=== PATIENT | female | born 1995 | race Caucasian/White ===

== ENCOUNTER 2022-05-14 05:50 | Day surgery (SDC) | payer BC ==
[2022-05-13 11:26] VITALS: BMI 34.9
--- NOTE | 2022-05-13 13:05 | P.HPOB ---
History of Present Illness H&P Date: 05/13/22 Chief Complaint: Missed This patient is a pleasant 26 yr estimated gestational age 9 weeks by dates, estimated 6 weeks by ultrasound who presents for suction D&C secondary to a missed . Patient's history is such that she presented for her initial OB visit and ultrasound showed an empty 6 weeks sac. Repeat ultrasound 1 week later confirmed a non-viable . I discussed options with the patient including expectant management vs. D&C and she would like to proceed with a D&C for treatment. Review of Systems Genitourinary: Reports Menstruation: Reports amenorrhea Past Medical History Past Medical History: No Reported History History of Any Multi-Drug Resistant Organisms: None Reported Additional Past Surgical History / Comment(s): [place] teeth Past Anesthesia/Blood Transfusion Reactions: Motion Sickness Additional Past Anesthesia/Blood Transfusion Reaction / Comment(s): States is very nervous for surgery. Past Psychological History: No Psychological Hx Reported Smoking Status: Never smoker Past Alcohol Use History: None Reported Past Drug Use History: None Reported - Past Family History Mother Additional Family Medical History / Comment(s): Clotting disorder on her mother's side. Medications and Allergies Home Medications Medication Instructions Recorded Confirmed Type Vit No.179/Iron/Folic 1 each PO DAILY 05/13/22 05/13/22 History [ Tablet] Allergies Allergy/AdvReac Type Severity Reaction Status Date / Time No Known Allergies Allergy Verified 05/13/22 11:10 Exam Intake and Output 05/12/22 05/13/22 05/13/22 22:59 06:59 14:59 Other: Weight 104.326 kg - OBG Physical Exam Abdomen: bowel sounds normal, no diffuse tenderness, no bruit present, no guarding noted, no hepatomegaly, no splenomegaly, no mass Vulva: both: normal Vagina: normal moisture, no discharge Cervix: no lesion, no discharge Uterus: normal size, normal contour Results Serial ultrasounds show a 6 weeks gestational sac with pole. HCG ~13,000. Blood type O positive. Assessment and Plan Assessment: This is a pleasant 26 yr female estimated gestational age 6 weeks with non- viable (missed ). Plan is suction D&C. I discussed this surgery and risks: infection, bleeding, possible uterine perforation. All of her questions were answered and a written consent was obtained. (1) Missed Status: Acute Code(s): O02.1 - MISSED SNOMED Code(s): 89891995
[~2022-05-14 05:50] MED LIST: LACTATED RINGERS 1,000 ML IV SCH; Pre Op ABX Message 1 EACH MISC MISCELLANE ONE
[2022-05-14] MEDS ORDERED: ONDANSETRON 4 MG/2 ML VIAL IVP ONE (06:43)
[2022-05-14] MEDS ORDERED: DEXAMETHASONE SOD PHOSPHATE 4 MG/ML 1 ML VIAL IVP ONE (06:44)
[2022-05-14] MEDS ORDERED: MIDAZOLAM 2 MG/2 ML VIAL ONE (06:45)
[2022-05-14] MEDS ORDERED: KETOROLAC 15 MG/ML 1 ML VIAL ONE (06:45)
[2022-05-14] MEDS ORDERED: PROPOFOL 10 MG/ML 20 ML VIAL IV ONE (06:45)
[2022-05-14] MEDS ORDERED: LIDOCAINE 2% INJ 20 MG/ML (2 ML VIAL) ONE (06:45)
[2022-05-14] MEDS ORDERED: fentaNYL (PF) 50 MCG/ML 2 ML AMP ONE (06:45)
--- NOTE | 2022-05-14 07:18 | P.OP ---
Date of Procedure: 05/14/22 Preoperative Diagnosis: Missed , 6 weeks Postoperative Diagnosis: Same Procedure(s) Performed: Suction dilation and curettage Anesthesia: other (LMA) Surgeon: Elliot Aguayo Estimated Blood Loss (ml): 50 Urine output (ml): 75 Pathology: other (Products of conception) Condition: stable Disposition: PACU Indications for Procedure: Please see dictated H&P for intimate details of this patient's admission. Brief summary this is a pleasant 26-year-old 1 para 0 female estimated gestational age 6 weeks with serial ultrasounds showing a missed . Patient now presents for suction D&C for treatment. Patient understands this surgery and risks including risks of infection, bleeding, possible uterine perforation. All the patient's questions are answered and a written consent is obtained. Operative Findings: Uterine contents were consistent with products of conception Description of Procedure: This patient is taken to the operating room where she is laid in the supine position. She subsequently undergoes general anesthesia without incident. With an adequate level of anesthesia she's placed in dorsal lithotomy position. She has a vaginal perineal prep and drape. Examination under anesthesia shows a mid position uterus slightly enlarged. Weighted speculum was placed in the posterior vagina. Bladder is then drained for 75 mL of clear urine. I placed an Allis clamp on the anterior lip of the cervix. The cervix is then gently dilated to allow a 8 curved suction curette easily uterine cavity. Suction curet is passed multiple times for a generous amount of tissue. This completed the suction curet is removed and a gentle but thorough 4 quadrant curettage is done and confirms no further tissue. Final pass of the suction curet is done. Bleeding subsides and the procedure is ended. Weighted speculum and Allis clamp removed. All counts are correct 3. There are no complications. Patient is awakened from anesthesia and taken recovery room satisfactory condition.
[2022-05-14 07:31] VITALS: TEMP 97.4
[2022-05-14 07:35] VITALS: RESP 16
[2022-05-14 08:17] VITALS: BP 104/66; PULSE 68
== END 2022-05-14 08:51 | disposition home or self-care (01) ==
LOC: OR 05:50
PROVIDERS: ATTEND Obstetrics & Gynecology
DX: O02.1 Missed abortion (principal); K01.1 Impacted teeth; Z83.2 Family history of diseases of the blood and blood-forming organs and certain disorders involving the immune mechanism; T75.3XXD Motion sickness, subsequent encounter; Z86.69 Personal history of other diseases of the nervous system and sense organs
CPT/HCPCS: 59820; 86900; 86901; 88305; 86850; J2250; J1100; J2405; J3010; J1885; J2704; J2001

== ENCOUNTER 2023-05-06 05:52 | Inpatient (IN) | payer BC ==
--- NOTE | 2023-05-05 07:04 | P.HPOB ---
History of Present Illness H&P Date: 05/05/23 Chief Complaint: Requested induction of labor This patient is a pleasant 27-year-old 2 para 0 female estimated date of confinement 05/06/2023 estimated gestational age 40-0/7 weeks who presents to labor and delivery for requested induction of labor. Patient's care has been uncomplicated. Patient's uncomfortable has a favorable cervix at term requesting induction. Review of Systems Genitourinary: Reports Menstruation: Reports amenorrhea Past Medical History Past Medical History: No Reported History History of Any Multi-Drug Resistant Organisms: None Reported Additional Past Surgical History / Comment(s): [place] teeth; suction D&C Past Anesthesia/Blood Transfusion Reactions: Motion Sickness Past Psychological History: No Psychological Hx Reported Smoking Status: Never smoker Past Alcohol Use History: None Reported Past Drug Use History: None Reported - Past Family History Mother Additional Family Medical History / Comment(s): Clotting disorder on her mother's side. Medications and Allergies Home Medications Medication Instructions Recorded Confirmed Type Vit No.179/Iron/Folic 1 each PO DAILY 05/13/22 05/13/22 History [ Tablet] Allergies Allergy/AdvReac Type Severity Reaction Status Date / Time No Known Allergies Allergy Verified 05/13/22 11:10 Exam - OBG Physical Exam Abdomen: bowel sounds normal, no diffuse tenderness, no bruit present, no guarding noted, no hepatomegaly, no splenomegaly, no mass Vulva: both: normal Vagina: normal moisture, no discharge Cervix: no lesion (Cervix is 2 cm and soft.), no discharge Uterus: enlarged (Fundal height 38 cm) Results labs show she is O positive, rubella immune, RPR is nonreactive, HIV is negative, hepatitis B and C her nonreactive, Glucola was normal at 119, group B strep was negative, most recent ultrasound showed baby to be 6 lbs. 14 oz. Assessment and Plan Assessment: This is a pleasant 27-year-old 2 para 0 female 40-0/7 weeks gestation admitted to labor and delivery for requested induction of labor. Plan is induction of labor and anticipate vaginal delivery. (1) 40 weeks gestation of Status: Acute Code(s): Z3A.40 - 40 WEEKS GESTATION OF SNOMED Code(s): 12227929 (2) Elective induction of labor planned Status: Acute Code(s): CMN1611 - SNOMED Code(s): 169474480
[2023-05-06] MEDS ORDERED: OXYTOCIN 30 UNITS/500 ML NS 30 UNIT in SALINE 1 500ML.BAG IV SCH ×2 (06:08→21:15)
[2023-05-06] MEDS ORDERED: CARBOPROST TROMETHAMINE 250 MCG/ML 1 ML AMP IM PRN ×2 (06:08→19:44)
[2023-05-06] MEDS ORDERED: OXYTOCIN 10 UNIT/ML 1 ML VIAL IM PRN ×2 (06:08→19:44)
[2023-05-06] MEDS ORDERED: TRANEXAMIC 1,000 MG/100ML-NACL 1,000 MG in EMPTY BAG 1 BAG IV PRN ×2 (06:08→19:44)
[2023-05-06] MEDS ORDERED: TERBUTALINE 1 MG/ML VIAL SQ PRN (06:08)
[2023-05-06] MEDS ORDERED: miSOPROStoL 200 MCG TAB PO PRN ×2 (06:08→19:44)
[2023-05-06] MEDS ORDERED: LIDOCAINE 0.5% (PF) 5 MG/ML (50 ML SDV) SQ PRN (06:08)
[2023-05-06] MEDS ORDERED: METHYLERGONOVINE 0.2 MG/ML 1 ML AMP IM PRN ×2 (06:08→19:44)
[2023-05-06] MEDS: LACTATED RINGERS 1,000 ML IV SCH ×3 (06:10→22:00)
[2023-05-06 06:29] LABS: Basophils % (A) 0 %; Eosinophils # (A) 0.1 k/uL (0-0.7); Eosinophils % (A) 1 %; HCT 37.8 % (34.0-46.0); Lymphocytes # (A) 2.2 k/uL (1.0-4.8); Lymphocytes % (A) 23 %; MCH 32.2 pg (25.0-35.0); MCHC 34.5 g/dL (31.0-37.0); MCV 93.4 fL (80.0-100.0); Monocytes # (A) 0.5 k/uL (0-1.0); Monocytes % (A) 6 %; Neutrophils # (A) 6.7 k/uL (1.3-7.7); Neutrophils % (A) 68 %; Platelet Count 165 k/uL (150-450); RBC 4.05 m/uL (3.80-5.40); RDW 12.9 % (11.5-15.5); WBC 9.8 k/uL (3.8-10.6)
[2023-05-06] MEDS ORDERED: fentaNYL (PF) 50 MCG/ML 5 ML AMP ONE (10:56)
[2023-05-06] MEDS ORDERED: ROPIVACAINE 5 MG/ML 30 ML VIAL ONE (10:56)
[2023-05-06] MEDS ORDERED: SODIUM CHLORIDE 0.9% 250 ML BAG ONE (10:56)
--- NOTE | 2023-05-06 18:57 | P.PN ---
Progress Note - Text Progress Note Date: 05/06/23 Patient's cervix continues to be 6 cm with descent of the head -2 station. Patient's been in early active labor for greater than 4 hours without any progression. heart tones are reassuring at this time. I did discuss the patient the concern of cephalopelvic dystocia and did offer her at this time. She at this point wants to continue waiting and have a repeat examination. Plan at this time is to recheck and reevaluate as labor progresses.
[2023-05-06] MEDS ORDERED: CITRIC ACID-SODIUM CITRATE 15 ML CUP PO ONE (19:44)
--- NOTE | 2023-05-06 19:45 | P.PN ---
Progress Note - Text Progress Note Date: 05/06/23 Patient's repeat exam shows cervix is still 6 cm head -2 station. She is now requesting section for delivery. Did discuss the benefits risks of the surgery including risks. We will proceed with section this time.
[2023-05-06] MEDS ORDERED: OXYTOCIN 30 UNITS/500 ML NS BAG IV ONE (20:10)
[2023-05-06] MEDS ORDERED: MORPHINE SULFATE (PF) 0.3 MG/0.3 ML SYR ONE (20:10)
[2023-05-06] MEDS ORDERED: KETOROLAC 15 MG/ML 1 ML VIAL ONE (20:10)
[2023-05-06] MEDS ORDERED: ONDANSETRON 4 MG/2 ML VIAL ONE (20:10)
[2023-05-06] MEDS ORDERED: NALBUPHINE 10 MG/ML (10 ML MDV) IV PRN (20:35)
[2023-05-06] MEDS ORDERED: METOCLOPRAMIDE 5 MG/ML 2 ML VIAL IVP PRN ×2 (20:35→21:04)
[2023-05-06] MEDS ORDERED: ONDANSETRON 4 MG/2 ML VIAL IVP PRN (20:35)
[2023-05-06] MEDS ORDERED: diphenhydrAMINE 50 MG/ML 1 ML VIAL IVP PRN ×2 (20:35→21:04)
[2023-05-06] MEDS ORDERED: KETOROLAC 15 MG/ML 1 ML VIAL IVP PRN (20:35)
[2023-05-06] MEDS ORDERED: NALOXONE 0.4 MG/ML 1 ML VIAL IV PRN (20:35)
[2023-05-06] MEDS ORDERED: MORPHINE SULFATE 2 MG/ML SYRINGE IVP PRN (20:35)
[2023-05-06] MEDS ORDERED: SIMETHICONE 80 MG CHEWABLE PO PRN (21:04)
[2023-05-06] MEDS ORDERED: ZOLPIDEM 5 MG TAB PO PRN (21:04)
[2023-05-06] MEDS ORDERED: LANOLIN CREAM 5 GM TUBE TOPICAL PRN (21:04)
[2023-05-06] MEDS ORDERED: diphenhydrAMINE 25 MG CAP PO PRN (21:04)
--- NOTE | 2023-05-06 21:18 | P.OP ---
Date of Procedure: 05/06/23 Preoperative Diagnosis: #1: 40-0/7 week intrauterine . #2: Failure to progress in labor Postoperative Diagnosis: #1: Same. #2: Nuchal cord 1 Anesthesia: spinal Surgeon: Elliot Aguayo Laboratory Operations Coordinator #1: Cholo Scott Estimated Blood Loss (ml): 600 Pathology: none sent Condition: stable Disposition: floor Indications for Procedure: Please see dictated H&P for intimate details of this patient's admission. Brief summary this is a pleasant 27-year-old 2 para 0 female 40-0/7 weeks gestation admitted to labor and delivery for requested induction of labor. Patient is admitted she's to 3 cm dilated has artificial rupture membranes for clear fluid. Labor is induced with Pitocin per protocol. Patient does get an epidural for pain control. Labor progresses to about 6 cm earlier in the day despite adequate labor does not progress beyond this and there is no descent of the head beyond -2 station. At this time I discussed with the patient and her family options for delivery including section and wished to proceed. Patient understands this surgery and risks and risks of infection, bleeding, possible injury bowel, bladder, vessels, and other organs. All the patient's questions are answered and a written consent is obtained. Operative Findings: This is a vigorous viable female infant Apgars 9 and 9 delivery time is 2027 hrs. There is nuchal cord 1. Description of Procedure: This patient has a Rain catheter placed to straight drain. Patient subsequently taken to the operating room where the epidural catheter is removed and spinal anesthetic is administered without incident. With an adequate level of anesthesia she has abdominal prep and drape. After the appropriate timeout, scalpels taken Pfannenstiel skin incision is made. A second scalpel is taken down the fascia the fascia scored with a knife. Fascial incision extended bilaterally using the Carver scissors. Fascia is then dissected off the rectus muscles sharply. Rectus muscles are the peritoneum identified and entered sharply. Peritoneal incision extended superior and inferior without difficulty. Bladder blade is then placed. Bladder peritoneum was then taken sharply off the lower uterine segment. Scalpels then taken low transverse uterine incision is made. Using a hemostat I enter the uterine cavity bluntly and there is loss of clear fluid. Uterine incision extended bluntly. 's head is guided through the incision. Also nares are bulb suctioned. The is thought to be occiput transverse presentation. There is a nuchal cord 1 which is reduced. More fundal pressure a deliver the rest this infant's body. This is a vigorous viable female Apgars are 9 and 9 delivery time is 2027 hrs. After delivery of the infant the umbilical cord is doubly clamped and cut infant is handed off to the nurses in attendance. The placenta is then manually extracted intact. Uterus is then externalized and uterine incision demarcated with Cruz clamps. Uterus is then closed using 0 Vicryl running locked fashion 2 layers. Additional [id number] stitches placed on the left side. Excellent hemostasis is noted. The bladder peritoneum was then identified and closed using a 3-0 Vicryl running fashion. Excess fluid is removed from the abdomen and pelvis. The uterus, tubes, ovaries appear normal for term gestation. Uterus placed back into the abdomen. Parietal peritoneum was then closed using 0 Vicryl running fashion. Rectus muscles reapproximated in 0 Vicryl interrupted fashion. Fascial incision closed using 0 PDS. Fascial incision is intact and hemostatic. Subcutaneous tissues and closed using a 3-0 Vicryl. Skin is and closed using abel. All counts are correct 3. There are no complications. Infant and mother taken the birthing suite in sati sfactory condition.
[2023-05-07] MEDS: ACETAMINOPHEN TAB 500 MG TAB PO SCH ×5 (00:15→23:55)
[2023-05-07] MEDS: KETOROLAC 15 MG/ML 1 ML VIAL IVP SCH ×4 (03:15→21:28)
[2023-05-07] MEDS: IBUPROFEN 600 MG TAB PO SCH ×3 (03:15→21:28)
[2023-05-07] MEDS: LACTATED RINGERS 1,000 ML IV SCH ×2 (03:19→19:21)
--- NOTE | 2023-05-07 06:49 | P.PNOBGPC ---
Subjective - Subjective Patient reports: Reports appetite normal, Reports voiding normally, Reports pain well controlled, Reports ambulating normally : doing well Objective - Vital Signs Latest vital signs: Vital Signs Temp Pulse Resp BP Pulse Ox 05/07/23 05:00 97 05/07/23 04:00 99.0 F 75 15 101/62 97 05/07/23 01:35 96 05/06/23 23:30 97.0 F L 87 16 113/55 96 05/06/23 23:00 74 17 111/59 96 05/06/23 22:30 69 17 109/55 97 05/06/23 22:15 78 16 116/55 95 05/06/23 22:00 80 16 122/60 96 05/06/23 21:45 79 16 119/57 96 05/06/23 21:35 97 05/06/23 21:30 97.1 F L 83 17 106/55 96 Intake and Output 05/06/23 05/06/23 05/07/23 14:59 22:59 06:59 Intake Total 30.333 Output Total 500 455 440 Balance -500 -424.667 -440 Intake: Intake, IV Titration 30.333 Amount Oxytocin 30 Units/500 ml 30.333 Ns 30 unit In Saline 1 500ml.bag @ Per Protocol IV .Q0M [facility] Rx#:[id number] Output: Urine 500 200 Output, Quantitative 455 240 Blood Loss Other: Voiding Method Indwelling Catheter Indwelling Catheter # Voids 1 - Exam Lungs: bilateral: normal Chest: Normal S1, Normal S2 Extremities: Present: normal Abdomen: Present: normal appearance, soft. Absent: distention, tenderness Incision: Present: normal, dry, intact Uterus: Present: normal, firm Assessment and Plan Assessment: Postoperative day #1. Patient is resting without complaints. Vital signs are stable and she is afebrile. Uterus is firm nontender and her incision is intact and dry. CBC is pending at time of this dictation. My impression this is a normal postoperative course. Plan is to check CBC, allow the patient to shower, discontinue her catheter, encourage ambulation. (1) 40 weeks gestation of Current Visit: No Status: Acute Code(s): Z3A.40 - 40 WEEKS GESTATION OF SNOMED Code(s): 70629885 (2) Elective induction of labor planned Current Visit: No Status: Acute Code(s): PUK4871 - SNOMED Code(s): 157220762
--- NOTE | 2023-05-07 06:52 | P.PN ---
Progress Note - Text Progress Note Date: 05/07/23 Postop day 1 from under spinal anesthesia with intrathecal morphine given for postop pain management. Patient is doing well. Pain is well controlled. On visual analog scale 1/10 Mild itching present No nausea or vomiting reported. No Headache or weakness and numbness in the legs. No complications from spinal anesthesia.
[2023-05-07 08:05] LABS: Basophils % (A) 0 %; Eosinophils % (A) 0 %; HGB 10.7 gm/dL (11.4-16.0); Lymphocytes # (A) 1.6 k/uL (1.0-4.8); Lymphocytes % (A) 14 %; MCHC 33.5 g/dL (31.0-37.0); MCV 95.7 fL (80.0-100.0); Mean Platelet Volume 8.8; Monocytes # (A) 0.9 k/uL (0-1.0); Monocytes % (A) 7 %; Neutrophils # (A) 8.9 k/uL (1.3-7.7); Neutrophils % (A) 76 %; Platelet Count 148 k/uL (150-450); RBC 3.35 m/uL (3.80-5.40); WBC 11.8 k/uL (3.8-10.6)
[2023-05-07] MEDS: SENNOSIDES-DOCUSATE SODIUM 1 EACH TAB PO SCH ×2 (12:37→19:58)
[2023-05-08] MEDS: IBUPROFEN 600 MG TAB PO SCH ×2 (03:55→10:46)
[2023-05-08] MEDS: ACETAMINOPHEN TAB 500 MG TAB PO SCH ×2 (06:20→14:42)
[2023-05-08] MEDS: SENNOSIDES-DOCUSATE SODIUM 1 EACH TAB PO SCH (08:16)
--- NOTE | 2023-05-08 11:43 | P.DS ---
Providers Date of admission: 05/06/23 05:52 Expected date of discharge: 05/08/23 Attending physician: Elliot Aguayo Primary care physician: Stated None Hospital Course: This is a 27-year-old female 2 para 0 at 40-0/7 weeks who presented for induction of labor and then underwent a primary low transverse section on 05/06/2023 due to failure to progress. She delivered a viable female infant with scores of 9 at 1 minute and 9 at 5 minutes and infant weight of 8 lbs. 6 oz. Her postoperative and courses have been uncomplicated. Lochia is decreasing. Her pain is fairly well controlled as long as she does not move too much. She is urinating and passing flatus but no bowel movement yet. She is breast and bottlefeeding. Vital signs are stable. Abdomen is soft with positive bowel sounds 4. Incision is clean dry and intact with abel in place. Extremities show negative Homans. Impression is status post primary low transverse section postoperative day #2. Plan is to discharge home later today. Routine postoperative and instructions are given. She is advised follow-up with Dr. Aguayo in approximately 1 week for a postoperative check and in [address] Aguayo has already sent in prescriptions for her for ibuprofen and oxycodone. She is advised to call the office if she has any further questions or concerns prior to her appointment time. [place] will be removed and Steri-Strips placed prior to discharge. Procedures: Oxytocin induction of labor Primary low transverse section for delivery of a viable female on 05/06/2023 Patient Condition at Discharge: Stable Plan - Discharge Summary New Discharge Prescriptions: New Ibuprofen [Motrin] 600 mg PO Q6H #40 tab oxyCODONE HCL [OxyIR] 5 mg PO Q4HR PRN #18 tab PRN Reason: Pain Scale 4 - 6 No Action Vit No.179/Iron/Folic [ Tablet] 1 each PO DAILY Aspirin 81 mg PO DAILY Discharge Medication List Vit No.179/Iron/Folic [ Tablet] 1 each PO DAILY 05/13/22 [History] Aspirin 81 mg PO DAILY 05/06/23 [History] Ibuprofen [Motrin] 600 mg PO Q6H #40 tab 05/07/23 [Rx] oxyCODONE HCL [OxyIR] 5 mg PO Q4HR PRN #18 tab 05/07/23 [Rx] Follow up Appointment(s)/Referral(s): Elliot Aguayo MD [STAFF PHYSICIAN] - 06/16/23 11:15 am (Post Op Appointment 05-18-2023 at 09:00) Patient Instructions/Handouts: (DC) Activity/Diet/Wound Care/Special Instructions: No strenuous activity or heavy lifting for 6 weeks. No intercourse or anything per vagina for 6 weeks. Please call if any fever, chills, excessive vaginal bleeding, and/or abdominal pain. Discharge Disposition: HOME SELF-CARE
[2023-05-08 15:12] VITALS: BP 130/89; PULSE 70; RESP 15; TEMP 98.1
== END 2023-05-08 15:35 | disposition home or self-care (01) | DRG 788 ==
LOC: 4FBP 05:52
PROVIDERS: ADMIT Obstetrics & Gynecology; ATTEND Obstetrics & Gynecology
PROC: 3E033VJ Introduction of Other Hormone into Peripheral Vein, Percutaneous Approach (ICD-10-PCS; 2023-05-06)
PROC: 10D00Z1 Extraction of Products of Conception, Low, Open Approach (ICD-10-PCS; principal; 2023-05-06 20:00)
DX: O62.2 Other uterine inertia (principal); Z37.0 Single live birth; O69.81X0 Labor and delivery complicated by cord around neck, without compression, not applicable or unspecified; Z3A.40 40 weeks gestation of pregnancy
CPT/HCPCS: 85025; 86850; 86900; 86901